=== PATIENT | male | born 1960 | race Caucasian/White ===

== ENCOUNTER 2024-06-05 16:14 | Emergency (ER) | payer OTHER, SELFPAY ==
[2024-06-05 16:24] VITALS: BP 159/113
[2024-06-05 19:30] VITALS: BP 127/92
[2024-06-05 19:46] VITALS: BMI 29.5
[2024-06-05 19:50] VITALS: BP 140/102
[2024-06-05 20:00] VITALS: BP 135/97
[2024-06-05 20:19] LABS: % Basophils 0.6 % (0-2); % Eosinophils 2.1 % (0-6); % Immature Granulocytes 0.4 % (0-0.5); % Monocytes 7.1 % (1.7-9.3); % Neutrophils 54.8 % (42.2-75.2); Absolute Eosinophils 0.1 10^3/uL (0-0.7); Absolute Lymphocytes 1.9 10^3/uL (1.2-3.4); Absolute Monocytes 0.4 10^3/uL (0.1-0.6); Absolute Neutrophils 2.9 10^3/uL (1.4-6.5); Hematocrit 46.5 % (39.0-52.0); Hemoglobin 15.8 g/dL (13.0-18.0); Mean Corpuscular Hgb 31.5 pg (27.0-31.0); Mean Corpuscular Volume 92.8 fL (80.0-94.0); Mean Platelet Volume 10.9 fL (7.4-10.4); Nucleated Red Blood Cells % 0 % (-); Platelet Count 149 10^3/uL (130-400); Red Blood Cell Count 5.01 10^6/uL (4.70-6.10); Red Cell Dist. Width 12.4 % (11.5-14.5); White Blood Cell Count 5.4 10^3/uL (4.8-10.8)
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
[2024-06-05] MEDS: CARDIZEM 20 MG IV (20:32)
[2024-06-05] MEDS: NSS 1000 IV (20:33)
[2024-06-05 20:35] LABS: ALT (SGPT) 24 U/L (0-50); AST (SGOT) 35 U/L (17-59); Albumin 4.3 g/dl (3.5-5.0); Alkaline Phosphatase 80 U/L (38-126); Blood Urea Nitrogen 22 mg/dl (9-20); Calcium 9.1 mg/dl (8.4-10.2); Carbon Dioxide 29 mmol/L (22-30); Chloride 100 mmol/L (98-107); Estimated Creatinine Clearance 86 ml/min; Glucose 116 mg/dl (70-99); Potassium 4.8 mmol/L (3.5-5.1); Sodium 136 mmol/L (135-145); Total Protein 7.4 g/dl (6.3-8.2); eGFR > 60.00
[2024-06-05 20:43] LABS: D-Dimer 0.69 ug/mlFEU (0.00-0.50)
[2024-06-05 20:55] LABS: Troponin I 0.019 ng/ml
[2024-06-05 21:00] VITALS: BP 129/82
[2024-06-05 21:24] LABS: TSH Reflex To Free T4 2.31 uIU/ml (0.47-4.68)
[2024-06-05 22:00] VITALS: BP 119/73
== END 2024-06-05 22:34 | disposition home or self-care (01) ==
LOC: EMR 16:14
PROVIDERS: Physician Assistant; EMERGENCY PHYSICIAN Emergency Medicine; FAMILY PHYSICIAN Internal Medicine
DX: I48.92 Unspecified atrial flutter (principal)
CPT/HCPCS: 99284; 96374; 96361; 80053; 84443; 84484; 85025; 85379; 93005

== ENCOUNTER 2024-06-19 07:01 | Day surgery (SDC) | payer OTHER, SELFPAY ==
--- NOTE | 2024-06-19 09:55 | ITS.CL.CARDI ---
Dry Kiln Worker - Cardioversion
Cardioversion
Procedure Report:
Date of Procedure: 06/19/24
Procedure: Cardioversion
Indication: Symptomatic atrial fibrillation
Performing Physician: Oscar Monson MD
Technique: The patient was brought to the holding area. Signed informed consent was obtained. A time out was called and performed. The patient was anesthetized by the anesthesia service. Anticoagulation status was reviewed and appropriate. R2 pads
were placed anteriorly and posteriorly. After CHACE revealed no LA appendage thrombus, A 200 J synchronized biphasic shock restored normal sinus rhythm. The patient had marked bradycardia with a 6 second conversion pause which resolved over 1 minute.
Heart rate was 60-70bpm upon discharge.
Conclusion: Successful cardioversion from atrial fibrillation to sinus rhythm.
Recommendation: Routine post cardioversion care. Continue custodial anticoagulation.
== END 2024-06-19 10:30 | disposition home or self-care (01) ==
LOC: CATH 07:01
PROVIDERS: ATTENDING PHYSICIAN Internal Medicine Cardiovascular Disease; FAMILY PHYSICIAN Internal Medicine; OTHER PHYSICIAN Internal Medicine Cardiovascular Disease
DX: I48.91 Unspecified atrial fibrillation (principal); Z79.01 Long term (current) use of anticoagulants; I48.92 Unspecified atrial flutter; I08.1 Rheumatic disorders of both mitral and tricuspid valves; I08.8 Other rheumatic multiple valve diseases; Q21.12 Patent foramen ovale; I70.0 Atherosclerosis of aorta
CPT/HCPCS: 93312; 93320; 93325; 92960; 93005

== ENCOUNTER 2024-06-26 14:09 | Emergency (ER) | payer OTHER, SELFPAY ==
[2024-06-26 14:16] VITALS: BP 158/108
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
[2024-06-26 14:33] LABS: % Basophils 0.4 % (0-2); % Immature Granulocytes 0.4 % (0-0.5); % Lymphocytes 25.2 % (20.5-51.1); % Monocytes 6.4 % (1.7-9.3); % Neutrophils 65.6 % (42.2-75.2); Absolute Eosinophils 0.1 10^3/uL (0-0.7); Absolute Lymphocytes 1.4 10^3/uL (1.2-3.4); Absolute Monocytes 0.4 10^3/uL (0.1-0.6); Absolute Neutrophils 3.6 10^3/uL (1.4-6.5); Hematocrit 47.7 % (39.0-52.0); Hemoglobin 16.3 g/dL (13.0-18.0); Mean Corp Hgb Conc. 34.2 g/dL (33.0-37.0); Mean Corpuscular Hgb 31.8 pg (27.0-31.0); Mean Platelet Volume 10.6 fL (7.4-10.4); Nucleated Red Blood Cells % 0 % (-); Platelet Count 161 10^3/uL (130-400); Red Blood Cell Count 5.13 10^6/uL (4.70-6.10); Red Cell Dist. Width 12.3 % (11.5-14.5); White Blood Cell Count 5.5 10^3/uL (4.8-10.8)
[2024-06-26 15:01] LABS: ALT (SGPT) 37 U/L (0-50); AST (SGOT) 37 U/L (17-59); Albumin 4.5 g/dl (3.5-5.0); Alkaline Phosphatase 84 U/L (38-126); Blood Urea Nitrogen 24 mg/dl (9-20); Calcium 8.9 mg/dl (8.4-10.2); Carbon Dioxide 30 mmol/L (22-30); Chloride 100 mmol/L (98-107); Glucose 147 mg/dl (70-99); Magnesium 2.1 mg/dl (1.6-2.3); Potassium 4.7 mmol/L (3.5-5.1); Sodium 137 mmol/L (135-145); Total Protein 7.2 g/dl (6.3-8.2); eGFR > 60.00
[2024-06-26 15:13] LABS: NT-proBNP 1390 pg/ml; Troponin I < 0.012 ng/ml
[2024-06-26 16:00] VITALS: BP 157/113
[2024-06-26] MEDS: LOPRESSOR 5 MG IV (16:04)
[2024-06-26 16:52] LABS: TSH 0.86 uIU/ml (0.47-4.68)
== END 2024-06-26 17:03 | disposition home or self-care (01) ==
LOC: EMR 14:09
PROVIDERS: EMERGENCY PHYSICIAN Student in an Organized Health Care Education/Training Program; FAMILY PHYSICIAN Surgery
DX: I48.92 Unspecified atrial flutter (principal); N40.0 Benign prostatic hyperplasia without lower urinary tract symptoms; Z79.01 Long term (current) use of anticoagulants; Z82.49 Family history of ischemic heart disease and other diseases of the circulatory system
CPT/HCPCS: 99283; 80053; 83735; 83880; 84443; 84484; 85025; 93005

== ENCOUNTER 2024-09-17 07:57 | Day surgery (SDC) | payer OTHER, SELFPAY ==
[2024-09-12 09:31] LABS: INR 1.09; PT 14.4 Sec (11.4-14.6)
[2024-09-12 09:58] LABS: % Basophils 0.5 % (0-2); % Eosinophils 2.2 % (0-6); % Immature Granulocytes 0.5 % (0-0.5); % Lymphocytes 24.5 % (20.5-51.1); % Monocytes 7.9 % (1.7-9.3); % Neutrophils 64.4 % (42.2-75.2); Absolute Eosinophils 0.1 10^3/uL (0-0.7); Absolute Lymphocytes 1.5 10^3/uL (1.2-3.4); Absolute Monocytes 0.5 10^3/uL (0.1-0.6); Absolute Neutrophils 3.8 10^3/uL (1.4-6.5); Hematocrit 47.6 % (39.0-52.0); Hemoglobin 16.1 g/dL (13.0-18.0); Mean Corp Hgb Conc. 33.8 g/dL (33.0-37.0); Mean Corpuscular Hgb 31.3 pg (27.0-31.0); Mean Corpuscular Volume 92.6 fL (80.0-94.0); Mean Platelet Volume 11.3 fL (7.4-10.4); Nucleated Red Blood Cells % 0 % (-); Platelet Count 169 10^3/uL (130-400); Red Blood Cell Count 5.14 10^6/uL (4.70-6.10); Red Cell Dist. Width 12.3 % (11.5-14.5)
[2024-09-12 10:09] LABS: ALT (SGPT) 25 U/L (0-50); AST (SGOT) 27 U/L (17-59); Alkaline Phosphatase 73 U/L (38-126); Blood Urea Nitrogen 31 mg/dl (9-20); Calcium 9.7 mg/dl (8.4-10.2); Carbon Dioxide 28 mmol/L (22-30); Chloride 106 mmol/L (98-107); Glucose 51 mg/dl (70-99); Sodium 142 mmol/L (135-145); Total Bilirubin 1.2 mg/dl (0.2-1.3); Total Protein 6.8 g/dl (6.3-8.2); eGFR > 60.00
[2024-09-16 13:44] VITALS: BMI 32.0
[2024-09-17] VITALS (15 sets, daily range): BP systolic 86–152; BP diastolic 61–106; BMI 29.3
--- NOTE | 2024-09-17 11:56 | ITS.CL.ABL ---
Speech Pathology Supervisor - Ablation
Ablation
Procedure Report:
Primary Leasing Director: Dr. Pierre Joyce
Procedure Date: September 17, 2024
Procedure
Electrophysiology Study, with RA, CS pacing and recording
Radiofrequency Ablation of Counterclockwise Cavotricuspid Isthmus-dependent Right Atrial Flutter
Three-dimensional Electroanatomic Mapping and Navigation
Intracardiac ultrasound
Patient History
See H&P for complete details
Patient is a 64-year-old male who had prior CTI flutter ablation in 2014 with nonirrigated RF. I done well clinically for almost 10 years with acute recurrence in late 2023 now failed cardioversion and metoprolol therapy.
Method
After informed consent was obtained, the patient was brought to the EP lab in a post-absorptive, non-sedated state. A peripheral IV was in place. Continuous electrocardiography, blood pressure and pulse oximetry monitoring were initiated and
cardioversion / defibrillator patch electrodes were positioned on the chest in an anterior-posterior orientation. Sedation was administered via the anesthesia services. A time-out was called. Local anesthesia was administered at the right and left
femoral vein access sites. Vascular access was achieved using modified Seldinger technique, and an 8 Wallisian 9 Wallisian sheaths were placed in the right femoral vein. The left femoral vein was diminutive on ultrasound and access was attempted on that
side although inadvertent arterial access was performed and pressure was held for 10 minutes. Venous access could not be achieved on the left side given the diminutive nature of the vein on ultrasound and as such all of the procedures performed
through the right femoral vein..
The patient entered the room in typical appearing CTI flutter cycle length 280 ms. A multipolar catheter were advanced to the coronary sinus. A mapping / ablation catheter was used to record and pace. Intracardiac ultrasound (ICE) was utilized for
structural assessment and monitoring. Tachycardia was characterized by activation patterns in the CS catheters. Entrainment maneuvers established cavotricuspid isthmus-dependence. The distal coronary sinus was out of the circuit
Three-dimensional electroanatomic mapping was utilized. Catheter ablation in the right atrium was performed as described below. The patient�s atrial flutter terminated during ablation with 1 PAF lesion at the mid isthmus. Ablation continued until
a line was complete from the tricuspid valve annulus to the IVC-RA junction. Radiofrequency lesions were given at the tricuspid annulus and from the mid annulus back to the IVC PFA lesions were given. Clockwise and counterclockwise trans-isthmus
times were determined, and RA activation patterns confirmed bidirectional block. Interval measurements in NSR were made. A waiting period was observed, after which the procedure was concluded. Interest was conduction time of approximately 170 ms
was seen.
At the end of the procedure, all catheters and sheaths were removed, hemostasis was assured in the standard fashion, and the patient was taken to the recovery area in stable condition.
Baseline Intervals:
Rhythm: CTI flutter
CO: 160 ms-when in sinus
QRS: 80 ms
QT: 380 ms
QTc: 420 ms
A-A: 800 ms
R-R: 800 ms
AVWB: 400 ms
AVERP: 600�280 ms
Post-Procedure Intervals:
Unchanged
AV Conduction:
VA Block at less than 500 ms
AVWB at 400 ms
AV Node ERP 600�310
AERP 600�280
No arrhythmia was inducible post ablation
Arrhythmia Summary
#1 - Counterclockwise Cavotricuspid Isthmus-dependent Right Atrial Flutter utilizing breakthrough in the mid isthmus
� Present at study outset
� Stable Atrial CL = 280 ms
� Surface flutter wave morphology: Negative in the inferior leads and positive in V1
� Right to left activation in CS
� Cycle length contained with in the RA on electroanatomic mapping
� Pacing from the isthmus resulted in entrainment (with concealment) with PPI=TCL.
These finding established the diagnosis of isthmus-dependent, counterclockwise atrial flutter.
Mapping and Ablation
Utilizing electroanatomic three-dimensional navigation, a 9 mm lattice SE irrigated ablation catheter was advanced to the right atrium with the assistance of an11.5 Fr Agilis steerable long sheath. An electroanatomic three-dimensional map of the
right atrium was constructed, with careful attention to anatomic landmarks, including the coronary sinus, IVC-RA and SVC-RA junction, tricuspid valve annulus, and region of the His bundle electrogram.
An ablation line was created from the tricuspid annulus to the IVC somewhat laterally to avoid proximity to the conduction system. Power was titrated between 400 [place] over 5 seconds with radiofrequency NPF 8 lesions were given from the mid isthmus
back to the IVC with direct contact determined on intracardiac ultrasound. The patient�s atrial flutter terminated during ablation at the area of breakthrough, with resumption of NSR and a 8-second postconversion pause. The line was completed
during CS pacing, and bidirectional block was achieved. The ablation line was mapped to ensure widely spaced double potentials, and after a 20 minute waiting period, bidirectional block persisted.
Ablation Summary
Total ablation time: 1 minutes
Estimated Blood Loss
<50 mL
Fluoroscopy Time 11.6
Radiation Dose 120 mGy mGy
Complications
None
Conclusions
1. Typical, counterclockwise atrial flutter. Isthmus-dependence was established with entrainment.
2. Successful ablation of the cavotricuspid isthmus with bidirectional block.
Recommendations
- Ambulate in 4 hours
- Bedrest with straight leg precautions for four hours
- Resume anticoagulation times a minimum of 1 month and outpatient monitoring for atrial fibrillation as an outpatient
- Continue remaining home medications as indicated
- Follow-up in clinic in 4-6 weeks or sooner if needed
- Consider same-day discharge
Pierre Joyce
Clinical Cardiac Electrophysiology
cc: Dr. Pierre Joyce
[2024-09-17] MEDS: DILAUDID 1 MG IV (12:49)
--- NOTE | 2024-09-17 16:42 | W.PN.UPDATE ---
Update Note
Progress Note Update
64 yo WM s/p PVI (Same day). He denies cp, sob, jr diet, EKG SR 1 deg AVB, R fem site had small HT post procedure, manual pressure held and now soft with some mild scrotal ecchymosis. He will resume Eliquis tonight at home and continue metoprolol.
Activity restrictions reviewed. He will f/u Dr. Chou in 3 mo. He is for d/c home after 5pm.
== END 2024-09-17 17:10 | disposition home or self-care (01) ==
LOC: CATH 07:57
PROVIDERS: ATTENDING PHYSICIAN Internal Medicine Cardiovascular Disease; FAMILY PHYSICIAN Internal Medicine; OTHER PHYSICIAN Internal Medicine Cardiovascular Disease
DX: I48.3 Typical atrial flutter (principal); Z86.718 Personal history of other venous thrombosis and embolism
CPT/HCPCS: C1894; C1730; C1766; C1892; C1759; C1733; 36415; 80053; 83735; 85025; 85610; 86850; 86900; 86901; 93005; 93653

== ENCOUNTER → 2024-09-23 10:04 | Outpatient (REF) | payer OTHER, SELFPAY | LOC: RAD 10:04 | PROVIDERS: ATTENDING PHYSICIAN Internal Medicine Cardiovascular Disease; FAMILY PHYSICIAN Internal Medicine | DX: T14.8XXA Other injury of unspecified body region, initial encounter (principal) | CPT/HCPCS: 93926 ==